=== PATIENT | female | born 1940 | race Two or more races ===

== ENCOUNTER 2017-07-14 12:15 | Emergency (ER) | payer MEDICARE, MEDICAID ==
[~2017-07-14] VITALS: Ht 152.4 cm; Wt 59.0 kg
[~2017-07-14 12:15] MED LIST: UNOBMED
[2017-07-14 12:30] VITALS: BP 198/95
[2017-07-14] MEDS ORDERED: LORazepam Inj 2mg/ml 1ml IV ONE (13:00)
--- NOTE | 2017-07-14 13:57 | Diagnostic Imaging Report ---
Indications: dizziness x2 days Technique: Spiral acquisitions obtained through the brain. Angled axial and coronal 5 x 5 mm slices were reconstructed. Total dose length product 1435.91 mGycm. CTDI vol(s) 70.38 mGy. Dose reduction achieved using automated exposure control Comparison: None. Findings: There is mild age-related enlargement of the ventricles and extra-axial CSF spaces. No acute intracranial hemorrhage or edema. No mass effect nor midline shift. Intact calvarium. Visualized orbits and sinuses are unremarkable. The mastoids are clear. Impression: Age-related changes. Negative for acute intracranial bleed or mass effect The CT scanner at [facility] is accredited by the [employer] and the scans are performed using protocols designed to limit radiation exposure to as low as reasonably achievable to attain images of sufficient resolution adequate for diagnostic evaluation.
--- NOTE | 2017-07-14 14:14 | Diagnostic Imaging Report ---
Indication: Reason For Exam: DIZZY Technique: One view of the chest Comparison: none Findings: Inspiration is suboptimal. There is crowding of the vascular markings. There may be some left suprahilar consolidation. Pleural spaces are grossly clear. The heart is borderline enlarged. There are cholecystectomy clips Impression: Hypoventilatory exam Cannot rule out patchy left suprahilar infiltrate
[2017-07-14 14:21] LABS: EOSINOPHILS % (AUTO) 1.9 % (0.0-3.0); HEMATOCRIT 35.4 % (37.0-47.0); HEMOGLOBIN 11.4 G/DL (12.0-16.0); LYMPHOCYTES % (AUTO) 32.6 % (20.0-45.0); MEAN CORPUSCULAR VOLUME 90 FL (80-99); MONOCYTES % (AUTO) 7.5 % (1.0-10.0); PLATELET COUNT 164 K/UL (150-450); RED BLOOD COUNT 3.94 M/UL (4.20-5.40); RED CELL DISTRIBUTION WIDTH 13.5 % (11.6-14.8); WHITE BLOOD COUNT 6.3 K/UL (4.8-10.8)
[2017-07-14 14:30] LABS: ANION GAP 10 mmol/L (5-15); BLOOD UREA NITROGEN 11 mg/dL (7-18); CALCIUM 8.2 MG/DL (8.5-10.1); CARBON DIOXIDE 24 MMOL/L (21-32); CHLORIDE 106 MMOL/L (98-107); POTASSIUM 4.1 MMOL/L (3.5-5.1); SODIUM 140 MMOL/L (136-145)
[2017-07-14 14:37] LABS: ALANINE AMINOTRANSFERASE 18 U/L (12-78); ALBUMIN 3.9 G/DL (3.4-5.0); ALBUMIN/GLOBULIN RATIO 1.1 (1.0-2.7); ALKALINE PHOSPHATASE 82 U/L (46-116); ASPARTATE AMINO TRANSFERASE 19 U/L (15-37); BILIRUBIN,TOTAL 0.3 MG/DL (0.2-1.0); CREATINE KINASE 110 U/L (26-308)
--- NOTE | 2017-07-14 16:32 | Emergency Room Report ---
History of Present Illness General Chief Complaint: Dizziness Source: Patient, EMS Present Illness HPI Patient presents with vertigo. She feels the world spinning. Her legs also get weak when this happens. She has been evaluated for this in the past and has been treated effectively with meclizine which she does not have. Denies chest pain or palpitations. No fevers. She gets nauseated when this happens. C/O headache 7/10, pressure, frontal, not radiating, constant. Taking medicine for hypertension. No dysuria, diarrhea, joint pain, rashes. Allergies: Coded Allergies: No Known Allergies (Unverified , 07/14/17) Patient History Past Medical History: see triage record Social History: Denies: smoking, alcohol use, drug use Social History Narrative at home Reviewed Nursing Documentation: PMH: Agreed, PSxH: Agreed Nursing Documentation-PMH Hx Hypertension: Yes Review of Systems All Other Systems: negative except mentioned in HPI Physical Exam Vital Signs Date Time Temp Pulse Resp B/P (MAP) Pulse Ox O2 Delivery O2 Flow Rate FiO2 07/14/17 11:58 97.9 58 20 215/93 99 Room Air Sp02 EP Interpretation: reviewed, normal General Appearance: well appearing, no apparent distress, GCS 15 Head: normocephalic Eyes: bilateral eye normal inspection, bilateral eye PERRL, bilateral eye EOMI , bilateral eye other - no nystagmus ENT: hearing grossly normal, TMs + canals normal, moist mucus membranes Neck: supple Respiratory: lungs clear, normal breath sounds Cardiovascular #1: bradycardia Cardiovascular #2: 2+ radial (R) Gastrointestinal: normal inspection, normal bowel sounds, non tender, no mass, non-distended Musculoskeletal: back normal, gait/station normal, normal range of motion Neurologic: alert, oriented x3, track maintainer III-XII nml as tested, motor strength/tone normal, DTRs symmetric, sensory intact, cerebellar normal, normal gait, speech normal Psychiatric: mood/affect normal Skin: normal inspection, warm/dry Medical Decision Making Diagnostic Impression: Primary Impression: Vertigo Additional Impression: Bradycardia ER Course Patient presents with vertigo. Ddx: vertigo, labyrinthitis, posterior fossa disease. Noted bradycardia which may be related. Evaluation with EKG, labs, cxr, CT. Treatment with zofran and ativan with cardiac observation. EKG with bradycardia. CXR poor inspiration. CT chronic changes, labs with elevated glucose. Patient improved with zofran and refused ativan. C/O headache. Tylenol given with improvement. Consideration of contribution of bradycardia, but patient not symptomatic with slow heart rate. Feels better with treatment, ambulatory without dizziness or weakness. Patient stable for outpatient observation and treatment. Patient contacted 07/15. Meds: Metoprolol Metformin Motrin Indomethacin Advised to decrease dose of metoprolol and to return if symptoms continue or worsen. Laboratory Tests Test 07/14/17 14:00 White Blood Count 6.3 K/UL (4.8-10.8) Red Blood Count 3.94 M/UL (4.20-5.40) L Hemoglobin 11.4 G/DL (12.0-16.0) L Hematocrit 35.4 % (37.0-47.0) L Mean Corpuscular Volume 90 FL (80-99) Mean Corpuscular Hemoglobin 29.1 PG (27.0-31.0) Mean Corpuscular Hemoglobin Concent 32.3 G/DL (32.0-36.0) Red Cell Distribution Width 13.5 % (11.6-14.8) Platelet Count 164 K/UL (150-450) Mean Platelet Volume 9.1 FL (6.5-10.1) Neutrophils (%) (Auto) 57.0 % (45.0-75.0) Lymphocytes (%) (Auto) 32.6 % (20.0-45.0) Monocytes (%) (Auto) 7.5 % (1.0-10.0) Eosinophils (%) (Auto) 1.9 % (0.0-3.0) Basophils (%) (Auto) 1.0 % (0.0-2.0) Prothrombin Time 10.0 SEC (9.30-11.50) Prothrombin Time INR 1.0 (0.9-1.1) PTT 26 SEC (23-33) Sodium Level 140 MMOL/L (136-145) Potassium Level 4.1 MMOL/L (3.5-5.1) Chloride Level 106 MMOL/L (98-107) Carbon Dioxide Level 24 MMOL/L (21-32) Anion Gap 10 mmol/L (5-15) Blood Urea Nitrogen 11 mg/dL (7-18) Creatinine 1.0 MG/DL (0.55-1.30) Estimate Glomerular Filtration Rate mL/min (>60) Glucose Level 296 MG/DL (74-106) H Calcium Level 8.2 MG/DL (8.5-10.1) L Total Bilirubin 0.3 MG/DL (0.2-1.0) Aspartate Amino Transferase (AST) 19 U/L (15-37) Alanine Aminotransferase (ALT) 18 U/L (12-78) Alkaline Phosphatase 82 U/L (46-116) Total Creatine Kinase 110 U/L (26-308) Troponin I 0.022 ng/mL (0.000-0.056) Total Protein 7.6 G/DL (6.4-8.2) Albumin 3.9 G/DL (3.4-5.0) Globulin 3.7 g/dL Albumin/Globulin Ratio 1.1 (1.0-2.7) EKG Diagnostic Results Rate: bradycardiac Rhythm Strip Diag. Results EP Interpretation: yes Rhythm: no PVC's, no ectopy, other - intermittent bradycardia Chest X-Ray Diagnostic Results Chest X-Ray Diagnostic Results : Chest X-Ray Ordered: Yes # of Views/Limited/Complete: 1 View Indication: Other Interpretation: no consolidation, no effusion, no pneumothorax, other - poor inspiratoin Impression: No acute disease Electronically Signed by: Arnaud Nuñez MD CT/MRI/US Diagnostic Results CT/MRI/US Diagnostic Results : Imaging Test Ordered: head Impression age related changes Last Vital Signs Date Time Temp Pulse Resp B/P (MAP) Pulse Ox O2 Delivery O2 Flow Rate FiO2 07/14/17 16:57 97.9 55 20 156/62 99 Room Air Status: improved Disposition: HOME, SELF-CARE Condition: Improved Scripts Acetaminophen (Tylenol) 325 Mg Tablet 650 MG ORAL Q6H Y for Prn Pain/Headache/Temp > 101, #20 TAB 0 Refills Prov: Arnaud Hi M.D. 07/14/17 Ondansetron Odt* (ZOFRAN ODT*) 4 Mg Tab.rapdis 4 MG ORAL Q8H Y for Nausea & Vomiting, #6 TAB 1 Refill Prov: Arnaud Hi M.D. 07/14/17 Meclizine Hcl* (MECLIZINE*) 25 Mg Tablet 25 MG ORAL THREE TIMES A DAY Y for vertigo, #10 TAB Prov: Arnaud Hi M.D. 07/14/17 Referrals: [facility],REFERRING (PCP) Arnaud Hi M.D. Jul 14, 2017 16:32
[2017-07-14] MEDS ORDERED: ZOFRAN ODT4 MG ORAL (16:37)
[2017-07-14] MEDS ORDERED: MECLIZINE HCL25 MG ORAL (16:37)
[2017-07-14] MEDS ORDERED: TYLENOL325 MG ORAL (16:37)
[2017-07-14 16:46] VITALS: BP 156/62
[2017-07-14 16:57] VITALS: BP 156/62
--- NOTE | 2017-07-26 00:14 | Cardiology Report ---
APPROVED REPORT EKG Measurement Heart [id number] Sinus bradycardia Otherwise normal ECG
== END 2017-07-14 16:57 | disposition home or self-care (01) ==
LOC: EDBD 12:15 → EMR 12:25
DX: R42 Dizziness and giddiness (principal); R00.1 Bradycardia, unspecified; I10 Essential (primary) hypertension
CPT/HCPCS: 36415; 70450; 71010; 80053; 82550; 84484; 85025; 85610; 85730; 93005; 96374; 96375; 99284